=== PATIENT | male | born 1960 | race American Indian/Alaskan Native ===

== ENCOUNTER 2017-02-21 09:25 | Day surgery (SDC) | payer OTHER ==
[~2017-02-21] VITALS: Ht 180.3 cm; Wt 93.0 kg
[~2017-02-21 09:25] MED LIST: B COMPLEX1 EACH PO; GABAPENTIN300 MG PO; HYDROCHLOROTHIA25 MG PO; IBUPROFEN400 MG PO; IBUPROFEN600 MG PO; LIDOCAINE30 G TOP; LISINOPRIL20 MG PO; LORAZEPAM1 MG PO; MELATONIN5 M2 PO; MISOPROSTOL200 MCG PO; MULTIVITAMINS1 EAC7 PO; PANTOPRAZOLE SO40 MG PO; PROPRANOLOL HCL20 MG PO; TRAZODONE HCL100 MG PO
--- NOTE | 2017-02-21 10:03 | NUR ---
C/O BACK PAIN RATES IT ON 0/10 AT 7/10 STATES THIS IS WHERE IT IS MOST ALL THE TIME.
--- NOTE | 2017-02-21 10:57 | NUR ---
02/21/17 1057 Kaila Sam 1057 PATIENT ARRIVES TO PACU UNRESPONSIVE TO PAIN OR VERBAL STIMULI. RESP EVEN AND UNLABORED, ORAL AIRWAY IN PLACE, MASK AT 10 LITERS.
--- NOTE | 2017-02-22 06:51 | OR ---
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 Daily consumption of coffee, smoke, and snuff. POSTOPERATIVE DIAGNOSES Mild diffuse gastritis. Healed duodenal ulcers. PROCEDURE EGD with CLOtest and biopsies of the antrum and GE junction. ESTIMATED BLOOD LOSS: None. 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 He was noted to be in acute kidney failure. They flew him over to [facility]. He was noted to have melena during his admission. Dr. Lito Greenberg was consulted as chaplaincy. His upper endoscopy revealed the acute alcohol-related gastritis without hemorrhage. However, he had duodenal ulcers apparently with some hemorrhage. There was quite a bit of undigested food in the body and fundus of the stomach as well. He now has been on Protonix twice a day along with Cytotec twice a day. Apparently, a CLOtest was sent off, but we did not have those results. It was recommended at the time of discharge that he might consider repeat upper endoscopy in a number of weeks given the severity of his findings. In the meantime, he said he is feeling much better. He said the pain is gone. The melena is gone. He has cut his alcohol down to just a few beers on the weekends with his friends. However, he still likes coffee, stuff, and smoking. In addition, he has been he has been on Lorazepam as well as his Trazodone. He had been asked to see me locally then for his follow-up endoscopy. I have already helped Kendrick in the past with a colonoscopy. I gave him a pamphlet on upper endoscopy and we reviewed that together along with the risks including, but not limited to gas, bloating, crampy abdominal pain, bleeding, perforation requiring surgery, and missed diagnosis. He also understands the need for IV conscious sedation. Given his daily Lorazepam and Trazodone, we asked an anesthesia provider to help us with increased monitoring sedation with Propofol. He had expressed understanding and wished to proceed. NELLY Marks was taken into our endoscopy suite and placed in the supine semi-recumbent position. He was given Propofol per nurse manager of international. A bite block was utilized for the case. The posterior oropharynx was anesthetized with Hurricaine spray. The adult Electronically Signed By: BRANDT OLIVER MD 02/22/17 0651 PATIENT NAME: KENDRICK GRIFFIN OPERATIVE REPORT DATE OF : 64 PHYSICIAN: BRANDT OLIVER MD REPORT #: [id number] REPORT IS CONFIDENTIAL AND NOT TO BE RELEASED WITHOUT AUTHORIZATION [address] [address] Signed gastroscope was then introduced and advanced all the way out into the third portion of the duodenum under direct visualization of the camera without difficulty. The duodenum and pyloric channel were unremarkable. I saw no evidence of any inflammatory changes. The duodenal ulcers have all healed. The antrum and the stomach showed just mild inflammatory changes and so we went ahead and took a biopsy for pathologic review along with CLOtest. There were no gastric or esophageal varices. The scope was then retroflexed and I did not have a good view of his Cardia, but it looks like it is fine. He may have a poor flap valve mechanism. However, I did not see an obvious hiatal hernia. The scope was withdrawn up through the area of the GE junction, which was compliant without stricture. He does have some disruption to the Z-line. There was no Marshall's mucosa, no distal esophagitis. We went ahead and took 2 biopsies around the Z-line for pathologic review. The middle and upper esophagus were unremarkable. After this, the gas was suctioned out and the gastroscope removed. Kendrick tolerated procedure quite well. RECOMMENDATIONS I will see Kendrick back in my office in 7-14 days to review his results. MD ELLY Dao/Theresal /[id number] cc: JOHNATHON Dunn Electronically Signed By: BRANDT OLIVER MD 02/22/17 0651 PATIENT NAME: KENDRICK GRIFFIN OPERATIVE REPORT DATE OF : 64 PHYSICIAN: BRANDT OLIVER MD REPORT #: [id number] REPORT IS CONFIDENTIAL AND NOT TO BE RELEASED WITHOUT AUTHORIZATION
== END 2017-02-21 11:25 | disposition home or self-care (01) ==
LOC: OPS 09:25 → DS 09:25 → OPS 09:45 → DS 10:15 → OPS 10:15
PROVIDERS: Colon & Rectal Surgery
PROC: 0DB48ZX Excision of Esophagogastric Junction, Via Natural or Artificial Opening Endoscopic, Diagnostic (ICD-10-PCS; 2017-02-21)
PROC: 0DB68ZX Excision of Stomach, Via Natural or Artificial Opening Endoscopic, Diagnostic (ICD-10-PCS; principal; 2017-02-21 09:45)
DX: K29.50 Unspecified chronic gastritis without bleeding (principal); K21.0 Gastro-esophageal reflux disease with esophagitis; G47.00 Insomnia, unspecified; I10 Essential (primary) hypertension; I25.9 Chronic ischemic heart disease, unspecified; I65.8 Occlusion and stenosis of other precerebral arteries; E78.5 Hyperlipidemia, unspecified; M16.12 Unilateral primary osteoarthritis, left hip; F10.20 Alcohol dependence, uncomplicated; G62.9 Polyneuropathy, unspecified; F41.9 Anxiety disorder, unspecified; F17.210 Nicotine dependence, cigarettes, uncomplicated; D69.6 Thrombocytopenia, unspecified; Z96.642 Presence of left artificial hip joint; Z98.890 Other specified postprocedural states; Z79.899 Other long term (current) drug therapy; Z88.8 Allergy status to other drugs, medicaments and biological substances
CPT/HCPCS: 00740; 86677; J2704; J7120

== ENCOUNTER 2017-03-13 17:47 | Emergency (ER) | payer OTHER ==
[~2017-03-13] VITALS: Ht 180.3 cm; Wt 94.8 kg
[2017-03-13] MEDS ORDERED: PREDNISONE20 MG PO (19:42)
[2017-03-13] MEDS ORDERED: PROVENTIL HFA6.7 GM INH (19:42)
--- NOTE | 2017-03-14 07:15 | EKG ---
[facility] [address] [facility] [place] [address] Signed Normal sinus rhythm Early repolarization Normal ECG When compared with ECG of 14-FEB-2017 14:41, No significant change was found Confirmed by ALEX ELIAS MD ([id number]) on 03/14/2017 7:15:07 AM Electronically Signed By: ALEX ELIAS MD 03/14/17 0715 PATIENT NAME: YANETH GRIFFIN Electrocardiogram DATE OF : 64 PHYSICIAN: ALEX ELIAS MD REPORT #: [id number] REPORT IS CONFIDENTIAL AND NOT TO BE RELEASED WITHOUT AUTHORIZATION
== END 2017-03-13 20:08 | disposition home or self-care (01) ==
LOC: ED 17:47
DX: R00.2 Palpitations (principal); J44.1 Chronic obstructive pulmonary disease with (acute) exacerbation; E87.1 Hypo-osmolality and hyponatremia; I10 Essential (primary) hypertension; F17.200 Nicotine dependence, unspecified, uncomplicated; Z88.5 Allergy status to narcotic agent; Z79.899 Other long term (current) drug therapy
CPT/HCPCS: 71010; 80053; 84484; 85025; 93005; 93010; 99284; J7512

== ENCOUNTER 2020-06-17 16:48 | Emergency (ER) | payer MEDICARE, OTHER ==
[~2020-06-17] VITALS: Ht 180.3 cm; Wt 94.8 kg
[~2020-06-17 16:48] MED LIST changes: +OXYCODONE HCL15 MG; +PREDNISONE20 MG PO; +PROVENTIL HFA6.7 GM INH; +SM SENNA-S TAB1 EACH PO
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
[2020-06-17] MEDS ORDERED: BUPRENORPHINE HC8 MG (16:56)
[2020-06-17] MEDS ORDERED: LASIX40 MG PO (16:57)
[2020-06-17] MEDS ORDERED: DULOXETINE HCL60 MG PO (16:57)
[2020-06-17] MEDS ORDERED: DOXYCYCLINE MO100 M1 PO (16:57)
[2020-06-17] MEDS ORDERED: SPIRIVA18 MCG PO (16:58)
[2020-06-17] MEDS ORDERED: SENNA PLUS 8.61 EACH PO (16:58)
[2020-06-17] MEDS ORDERED: PREDNISONE20 MG PO (19:11)
--- NOTE | 2020-06-17 19:30 | EKG ---
[facility] [address] [facility] [place], [place] [address] Signed Sinus tachycardia Otherwise normal ECG No previous ECGs available Confirmed by CASSIA GARCIA DO ([id number]) on 06/17/2020 7:30:02 PM Electronically Signed By: CASSIA GARCIA DO 06/17/20 193 PATIENT NAME: YANETH GRIFFIN Electrocardiogram DATE OF : 64 PHYSICIAN: CASSIA GARCIA DO REPORT #: [id number] REPORT IS CONFIDENTIAL AND NOT TO BE RELEASED WITHOUT AUTHORIZATION
== END 2020-06-17 19:44 | disposition home or self-care (01) ==
LOC: ED 16:48
DX: J44.1 Chronic obstructive pulmonary disease with (acute) exacerbation (principal); E87.6 Hypokalemia; Z20.828 Contact with and (suspected) exposure to other viral communicable diseases; I10 Essential (primary) hypertension; F17.200 Nicotine dependence, unspecified, uncomplicated; Z88.5 Allergy status to narcotic agent; Z79.899 Other long term (current) drug therapy; Z79.891 Long term (current) use of opiate analgesic
CPT/HCPCS: 71045; 80053; 83735; 83880; 84484; 85025; 85379; 93005; 93010; 94640; 94664; 99285-25; C9803; J7512; U0003

== ENCOUNTER 2020-09-25 12:00 | Emergency (ER) | payer MEDICARE, OTHER ==
[~2020-09-25] VITALS: Ht 177.8 cm; Wt 90.7 kg
[~2020-09-25 12:00] MED LIST changes: +BUPRENORPHINE HC8 MG SL; +DOXYCYCLINE MO100 M1 PO; +DULOXETINE HCL60 MG PO; +LASIX40 MG PO; +SENNA PLUS 8.61 EACH PO; +SPIRIVA18 MCG PO
[2020-09-25] MEDS ORDERED: K-TAB ER20 MEQ PO (12:13)
[2020-09-25] MEDS ORDERED: CYMBALTA60 MG PO (12:45)
[2020-09-25] MEDS ORDERED: SPIRIVA18 MCG INH (12:46)
[2020-09-25] MEDS ORDERED: VENTOLIN HFA18 GM INH (12:46)
--- NOTE | 2020-09-25 13:57 | EKG ---
[facility] [address] [facility] [place] [address] Signed Normal sinus rhythm Normal ECG When compared with ECG of 17-JUN-2020 16:51, No significant change was found Confirmed by ALEX ELIAS MD ([id number]) on 09/25/2020 1:57:02 PM Electronically Signed By: ALEX ELIAS MD 09/25/20 1357 PATIENT NAME: YANETH GRIFFIN Electrocardiogram DATE OF : 64 PHYSICIAN: ALEX ELIAS MD REPORT #: [id number] REPORT IS CONFIDENTIAL AND NOT TO BE RELEASED WITHOUT AUTHORIZATION
[2020-09-25] MEDS ORDERED: IPRAT-ALBUT 0.5-3 ML INH (15:12)
[2020-09-25] MEDS ORDERED: PREDNISONE20 MG PO (15:12)
== END 2020-09-25 16:31 | disposition home or self-care (01) ==
LOC: ED 12:00
DX: J44.1 Chronic obstructive pulmonary disease with (acute) exacerbation (principal); I10 Essential (primary) hypertension; F17.200 Nicotine dependence, unspecified, uncomplicated; Z88.5 Allergy status to narcotic agent; Z79.899 Other long term (current) drug therapy
CPT/HCPCS: 71045; 80053; 83735; 83880; 84484; 85025; 93005; 93010; 94640; 96374; 99285-25; J2930

== ENCOUNTER 2022-05-11 13:14 | Emergency (ER) | payer OTHER, MEDICARE ==
[~2022-05-11] VITALS: Ht 177.8 cm; Wt 90.7 kg
[~2022-05-11 13:14] MED LIST changes: +CYMBALTA60 MG PO; +IPRAT-ALBUT 0.5-3 ML INH; +K-TAB ER20 MEQ PO; +SPIRIVA18 MCG INH; +VENTOLIN HFA18 GM INH
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
[2022-05-11] MEDS ORDERED: BUPRENORPHIN-N1 EACH SL (13:29)
[2022-05-11] MEDS ORDERED: HYDROXYZINE HCL25 MG PO (13:29)
[2022-05-11] MEDS ORDERED: SPIRONOLACTONE25 MG PO (13:29)
[2022-05-11] MEDS ORDERED: DOXYCYCLINE MO100 M1 PO (13:33)
== END 2022-05-12 08:19 | disposition home or self-care (01) ==
LOC: ED 13:14
DX: S39.012A Strain of muscle, fascia and tendon of lower back, initial encounter (principal); V89.2XXA Person injured in unspecified motor-vehicle accident, traffic, initial encounter; I71.40 Abdominal aortic aneurysm, without rupture, unspecified; F10.129 Alcohol abuse with intoxication, unspecified; J44.9 Chronic obstructive pulmonary disease, unspecified; I10 Essential (primary) hypertension; F17.200 Nicotine dependence, unspecified, uncomplicated; Z99.81 Dependence on supplemental oxygen; Z88.5 Allergy status to narcotic agent; Z79.899 Other long term (current) drug therapy
CPT/HCPCS: 36415; 70450; 71260; 72125; 74177; 80053; 82150; 82553; 83605; 83690; 85025; 86850; 86900; 86901; G0480; J1885; Q9967